=== PATIENT | male | born 1980 | race Hispanic/Latino ===

== ENCOUNTER 2020-01-14 10:48 | Emergency (ER) | payer OTHER ==
[2020-01-14] MEDS ORDERED: KETOROLAC TROMETHAMINE 60 MG/2 ML VIAL ONE (11:13)
== END 2020-01-14 12:15 | disposition home or self-care (01) ==
LOC: EDH 10:48
DX: S33.5XXA Sprain of ligaments of lumbar spine, initial encounter (principal); X50.9XXA Other and unspecified overexertion or strenuous movements or postures, initial encounter; Y93.89 Activity, other specified; Y92.89 Other specified places as the place of occurrence of the external cause; Y99.8 Other external cause status
CPT/HCPCS: 72100; 96372; 99283; J1885

== ENCOUNTER → 2020-03-18 | Outpatient (CLI) | payer OTHER | END | disposition home or self-care (01) | LOC: RAH 15:04 | PROVIDERS: ATTEND Nurse Practitioner Acute Care | DX: S33.5XXD Sprain of ligaments of lumbar spine, subsequent encounter (principal); M62.830 Muscle spasm of back; R26.9 Unspecified abnormalities of gait and mobility; X58.XXXD Exposure to other specified factors, subsequent encounter | CPT/HCPCS: 72148 ==

== ENCOUNTER → 2022-01-30 | Outpatient (CLI) | payer OTHER | END | disposition home or self-care (01) | LOC: ICE 08:53 | PROVIDERS: ATTEND Hospitalist | DX: Z20.822 Contact with and (suspected) exposure to COVID-19 (principal) | CPT/HCPCS: 87635; C9803 ==

== ENCOUNTER 2022-05-29 16:15 | Emergency (ER) | payer OTHER ==
[~2022-05-29] VITALS: Ht 172.7 cm; Wt 99.8 kg
[2022-05-29 16:16] VITALS: BP 126/69
[2022-05-29] MEDS ORDERED: NAPR-1180 PO (16:46)
== END 2022-05-29 17:03 | disposition home or self-care (01) ==
LOC: EDH 16:15
DX: S63.501A Unspecified sprain of right wrist, initial encounter (principal); S60.221A Contusion of right hand, initial encounter; W01.0XXA Fall on same level from slipping, tripping and stumbling without subsequent striking against object, initial encounter; Y93.89 Activity, other specified; Y92.89 Other specified places as the place of occurrence of the external cause; Y99.8 Other external cause status
CPT/HCPCS: 73110; 73130

== ENCOUNTER 2022-06-26 10:45 | Emergency (ER) | payer OTHER ==
[~2022-06-26] VITALS: Ht 172.7 cm; Wt 99.8 kg
[~2022-06-26 10:45] MED LIST: NAPR-1180 PO
[2022-06-26 10:49] VITALS: BP 131/85
[2022-06-26] MEDS ORDERED: TETRACAINE HCL 0.5% 4 ML OPHTH SOLN ONE (11:01)
[2022-06-26] MEDS ORDERED: NEO/5DRO4 OP (11:34)
== END 2022-06-26 11:50 | disposition home or self-care (01) ==
LOC: EDH 10:45
DX: T15.92XA Foreign body on external eye, part unspecified, left eye, initial encounter (principal); Z79.1 Long term (current) use of non-steroidal anti-inflammatories (NSAID)
CPT/HCPCS: 65205

== ENCOUNTER → 2025-08-05 | Outpatient (CLI) | payer OTHER ==
[~2025-08-05] MED LIST changes: +NEO/5DRO4 OP
--- NOTE | 2025-08-05 18:11 | HMCIMG ---
EXAM: US Abdomen complete CLINICAL HISTORY: Abnormal findings on diagnostic imaging of liver and biliary tract TECHNIQUE: Real-time ultrasound of the abdomen (complete) with image documentation. COMPARISON: None provided. FINDINGS: LIVER: No focal mass or biliary ductal dilatation. The liver contours are smooth. The liver is enlarged with increased echogenicity. GALLBLADDER: The gallbladder is normal in appearance. No gallstones or wall thickening. COMMON BILE DUCT: No dilatation. PANCREAS: Unremarkable where visualized. The distal pancreas is obscured by overlying bowel gas. KIDNEYS: Normal renal contours. No renal mass. No hydronephrosis. An echogenic focus measuring 8 5 6 millimeters is present in the mid pole of the left kidney, consistent with a calculus. SPLEEN: Normal in size and echogenicity. No mass is identified. AORTA: No aneurysm. INFERIOR VENA CAVA: Unremarkable as visualized. IMPRESSION: * Hepatomegaly with hepatic steatosis. * Nonobstructive left renal calculus. /[place]
== END | disposition home or self-care (01) ==
LOC: RAH 07:51
PROVIDERS: ATTEND Internal Medicine Gastroenterology
DX: K76.0 Fatty (change of) liver, not elsewhere classified (principal); N20.0 Calculus of kidney; R16.0 Hepatomegaly, not elsewhere classified; R93.2 Abnormal findings on diagnostic imaging of liver and biliary tract
CPT/HCPCS: 76700